=== PATIENT | female | born 1975 | race Caucasian/White ===

== ENCOUNTER 2020-07-23 10:54 | Outpatient (CLI) | payer OTHER, SELFPAY ==
--- NOTE | 2020-07-23 11:30 | NEURO_ITS ---
Impression: Complains of right upper extremity pain. # Right ulnar neuropathy across the elbow. # No Carpal Tunnel Syndrome. # Needle/EMG exam abnormal in right 1st DI and Abd Dig Min Nerve Conduction Studies Anti Sensory Summary Table Stim Site NR Peak (ms) P-T Amp (?V) Site1 Site2 Delta-P (ms) Dist (cm) Ariel (m/s) Right Median Anti Sensory (2-3nd Digit) Wrist 3.0 36.5 Wrist 2-3nd Digit 3.0 14.0 47 Wrist 3.1 28.9 Wrist 2-3nd Digit 3.0 14.0 47 Right Radial Anti Sensory (Base 1st Digit) Wrist 2.2 21.3 Wrist Base 1st Digit 2.2 0.0 Right Ulnar Anti Sensory (5th Digit) Wrist 2.2 24.6 Wrist 5th Digit 2.2 14.0 64 Motor Summary Table Stim Site NR Onset (ms) O-P Amp (mV) Site1 Site2 Delta-0 (ms) Dist (cm) Ariel (m/s) Right Median Motor (Abd Poll Brev) Wrist 3.0 9.4 Elbow Wrist 4.4 26.0 59 Elbow 7.4 6.4 Right Ulnar Motor (Abd Dig Minimi) Wrist 2.7 4.3 A Elbow Wrist 5.3 26.0 49 A Elbow 8.0 3.7 B Elbow Wrist 2.8 20.0 71 B Elbow 5.5 4.2 F Wave Studies NR F-Lat (ms) L-R F-Lat (ms) Right Median (Mrkrs) (Abd Poll Brev) 24.56 Right Ulnar (Mrkrs) (Abd Dig Min) 25.55 EMG Side Muscle Nerve Root Ins Act Fibs Amp Dur Recrt Comment Right 1stDorInt Ulnar C8-T1 Nml Nml Nml >12ms Reduced Right Ext Indicis Radial (Post Int) C7-8 Nml Nml Nml Nml Nml Right Ext Digitorum Radial (Post Int) C7-8 Nml Nml Nml Nml Nml Right BrachioRad Radial C5-6 Nml Nml Nml Nml Nml Right PronatorTeres Median C6-7 Nml Nml Nml Nml Nml Right Abd Poll Brev Median C8-T1 Nml Nml Nml Nml Nml Right ABD Dig Min Ulnar C8-T1 Nml Nml Nml >12ms Reduced MTDD
== END 2020-07-23 10:55 | disposition home or self-care (01) ==
PROVIDERS: PCP Internal Medicine; Visit Provider Internal Medicine
DX: G56.01 Carpal tunnel syndrome, right upper limb (principal)
CPT/HCPCS: 95886; 95909

== ENCOUNTER 2024-10-01 14:46 | Outpatient (CLI) | payer OTHER, SELFPAY ==
--- NOTE | ~2024-10-01 | XR_ITS ---
EXAM: XR shoulder LT min 2V DATE: 10/01/2024 15:28 HISTORY: pain in left shoulder . COMPARISON: CT chest, same date. FINDINGS: Normal mineralization. No fracture or dislocation. Bone island in the neck of the glenoid. No lytic or blastic lesion. Joint spaces are maintained. No erosion or periosteal change. Soft tissu es within normal limits. IMPRESSION: Normal left shoulder radiograph findings. Reviewed, dictated and finalized at location K.
--- NOTE | ~2024-10-01 | CT_ITS ---
CT Scan of the Chest without Contrast: Clinical Indication: Dyspnea Technique: Contiguous sections were acquired throughout the chest without intravenous contrast. Dose reduction technique was used on this scan by utilizing automated exposure control and iterative recon struction technique. The dose-length product (DLP) was 321.59 mGy-cm. Findings: There is no evidence of any significant mediastinal, hilar or axillary lymphadenopathy. The mediastin al soft tissues appear normal. There is no evidence of pleural or pericardial effusion. Thin-walled cystic lesion noted in the right lower lobe. No solid or suspicious pulmonary nodule seen . Images through the upper abdomen reveal no abnormalities. Impression: Thin-walled cystic lesion in the right lower lobe, with overall benign appearance. Reviewed, dictated and finalized at location . Impression: Thin-walled cystic lesion in the right lower lobe, with overall benign appearan ce.
--- OUTSIDE RECORDS SUMMARY | 2024-10-01 14:54 | XMS_ITS | Referral Summary ---
Author Organization [facility] Address [facility] [place] [address] Care Team Providers Care Benefits Specialist Name Role Phone Miscellaneous, Not In File Primary Care Provider Unavailable Allergies Active Allergy Reactions Criticality Noted Date Comments Promethazine Unknown 09/28/2023 Medications amoxicillin-clav ulanate (AUGMENTIN) 875-125 mg per tablet Take 1 tablet by mouth 2 (two) times a day 4 Active Eliquis 2.5 mg tablet TAKE 1 TABLET BY MOUTH TWICE DAILY DIRECTED 4 Active buPROPion XL (WELLBUTRIN XL) 300 mg 24 hr tablet 4 Active cloNIDine (CATAPRES) 0.1 mg tablet TAKE 1 TABLET BY MOUTH ONCE DAILY AT BEDTIME NEEDED FOR ANXIETY OR SLEEP 4 Active doxycycline (ADOXA) 100 mg tablet Take 1 tablet (100 mg total) by mouth 2 (two) times a day 4 Active triamcinolone (KENALOG) 0.025 % cream APPLY A THIN LAYER CREAM TO AFFECTED AREA 2-3 TIMES A DAY NEEDED FOR ITCHING/ INFLAMATION 4 Active traZODone (DESYREL) 50 mg tablet TAKE 1 TABLET BY MOUTH ONCE DAILY AT BEDTIME FOR SLEEP 4 Active ALBUTEROL SULFATE INHAL Inhale Active sodium chloride 3 % nebulizer solutionIndicati ons:Bronchiectas is without complication (HCC) Take 4 mL by nebulization 2 (two) times a day 240 mL 11 4 Active Active Problems Problem Noted Date Diagnosed Date History of Mycobacterium avium complex infection 10/01/2023 Assessment & Plan (10/01/2023 2:30 PM CDT): The last positive culture we are aware of was in 2017. She received an incomplete treatment course at that time. She is clinically stable. We will obtain sputum sample x 3 for AFB, and will obtain a repeat CT scan when she sees Dr Rain in 3 months. Until a dx of NTM pulmonary disease is established, she will not need to see me. 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 Social History Tobacco Use Types Packs/Day Years Used Date Smoking Tobacco: Every Day Cigarettes Smokeless Tobacco: Never Tobacco Cessation:Ready to Q uit: Yes; Counseling Given: Yes Personal Safety Answer Date Recorded Getting School Help Needed Not on file 05/17 Comments Unknown Sex and Gender Information Value Date Recorded Sex Assigned at Not on file 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 Gender Identity Not on file Sexual Orientation Not on file Last Filed Vital Signs Vital Sign Reading Time Taken Comments Blood Pressure 134/88 09/28/2023 9:06 AM CDT Pulse 88 09/28/2023 9:06 AM CDT Temperature 36.1 C (96.9 F) 09/28/2023 9:06 AM CDT Respiratory Rate - - Oxygen Saturation 95% 09/28/2023 9:06 AM CDT Inhaled Oxygen Concentration - - Weight 95.7 kg (211 lb) 09/28/2023 9:06 AM CDT Height 160 cm (5' 3) 09/28/2023 9:06 AM CDT Body Mass Index 37.38 09/28/2023 9:06 AM CDT Plan of Treatment Not on file Insurance [facility] [employer] Care Teams Benefits Specialist Relationship Specialty Start Date End Date Miscellaneous, Not In File PCP - General 09/28/23
--- OUTSIDE RECORDS SUMMARY | 2024-10-01 14:54 | XMS_ITS | Clinical Summary ---
Author Organization [facility] Address [facility] [place] [address] Care Team Providers Care Business Development Executive Name Role Phone Miscellaneous, Not In File [...] due to Mycobacterium avium c omplex 09/28/2023 Family History Medical History Relation Name Comments Stroke Brother Hypertension Father Stomach cancer Mother Relation Name Status Comments Brother Father Alive Mother Social History Tobacco Use Types Packs/Day Years Used Date Smoking Tobacco: Every Day Cigarettes Smokeless Tobacco: Never Tobacco Cessation:Ready to Q uit: Yes; Counseling Given: Yes Personal Safety Answer Date Recorded Getting School Help Needed Not on file 05/17 Comments Unknown Sex and Gender Information Value Date Recorded Sex Assigned at Not on file 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 Gender Identity Not on file Sexual Orientation Not on file Obstetrics History Last Filed Vital Signs Vital Sign Reading [...] 09/28/2023 9:06 AM CDT Plan of Treatment Health Maintenance Due Date Last Done Comments Breast Cancer Screening-Mammogram 1974 Cervical Cancer Screening 1974 Colon Cancer Screening-Colonoscopy 1974 Depression Screening 1974 Hepatitis C Screening 1974 Hepatitis B Screening 1992 Regular Well Visit/Exam 18-64 1992 Pneumococcal vaccine <65 (1 of 2 - PCV) 1993 Covid-19 Vaccine (3 - season) 11/06/202310/2022, 03/16/2022 Zoster Vaccine (1 of 2) 2024 Influenza Vaccine (#1) 2024 02/03/2023, 2022 DTaP/Tdap/Td Vaccine (2 - Td or Tdap) 05/05/203203/2022 Insurance [place] [id number] Care Teams Business Development Executive Relationship Specialty Start Date End Date Miscellaneous, Not In File PCP - General 09/28/23
== END 2024-10-01 14:47 | disposition home or self-care (01) ==
PROVIDERS: PCP Emergency Medicine; Visit Provider Emergency Medicine
DX: M25.512 Pain in left shoulder (principal); R06.00 Dyspnea, unspecified; J98.4 Other disorders of lung
CPT/HCPCS: 71250; 73030

== ENCOUNTER 2024-10-19 12:15 | Emergency (ER) | payer OTHER, SELFPAY ==
--- NOTE | ~2024-10-19 | US_ITS ---
EXAMINATION: US pelvic complete w TV DATE: 10/19/2024 14:42 INDICATION: 2 days of postmenopausal bleeding TECHNIQUE: Multiple transabdominal and endovaginal sonographic images of the pelvis were obtained. COMPARISON: None. FINDINGS: The uterus measures 8.3 x 4.0 x 5.9 cm. The endometrial complex measures 5 mm in thickness. The righ t ovary measures 2.7 x 1.3 x 2.5 cm. The left ovary measures 2.0 x 1.1 x 1.6 cm. Vascular flow with a rterial waveforms identified in both ovaries on color Doppler. There is no free fluid in the pelvis. IMPRESSION: 1. Endometrial complex measures 5 mm which is at the upper limits of normal for reported postmenopaus al state. Could consider follow-up pelvic ultrasound in 3-6 months, pre and postcontrast MRI or hyste roscopy for for further evaluation. Reviewed, dictated and finalized at location A. IMPRESSION: 1. Endometrial complex measures 5 mm which is at the upper limits of normal for reported postmenopausal state. Could consider follow-up pelvic ultrasound in 3 -6 months, pre and postcontrast MRI or hysteroscopy for for further evaluation.
[2024-10-19 12:17] VITALS: BP 161/102; PULSE 100; RESP 16; TEMP 36.7; O2SAT 98
--- OUTSIDE RECORDS SUMMARY | 2024-10-19 12:18 | XMS_ITS | Clinical Summary ---
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
[2024-10-19 12:42] VITALS: BP 133/88; PULSE 89; RESP 17; TEMP 36.6; O2SAT 97
[2024-10-19 13:00] VITALS: BP 128/87; PULSE 88; O2SAT 97
--- OUTSIDE RECORDS SUMMARY | 2024-10-19 13:07 | XMS_ITS | Clinical Summary ---
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
[2024-10-19 13:11] LABS: Hematocrit 43.8 % (37.0-47.0); Hemoglobin 14.6 g/dL (12.0-15.0); Immature Granulocyte Percent A 0.6 % (0-0.5); Lymphocytes Absolute Auto 3.17 K/mm3 (0.9-3.2); Mean Corpuscular HGB Conc 33.3 g/dl (32-36); Mean Corpuscular Hemoglobin 30.0 pg (26-34); Mean Corpuscular Volume 90.1 fl (80-100); Nucleated Red Blood Cells Absolute Auto 0.000 K/mm3 (0.0-0.012); Nucleated Red Blood Cells Perc 0.0 % (0.0-0.2); Platelet Count Result 332 k/mm3 (150-375); Red Blood Count 4.86 M/mm3 (4.2-5.4); White Blood Count 11.9 K/mm3 (4.5-10.0)
[2024-10-19 13:19] LABS: Alanine Aminotransferase 22 U/L (6-35); Albumin Level 4.6 g/dL (3.5-5.1); Alkaline Phosphatase 84 U/L (38-126); Anion Gap 9 mmol/L (4-12); Aspartate Amino Transferase 23 U/L (14-36); Bilirubin,Total 0.5 mg/dL (0.2-1.3); Blood Urea Nitrogen 11 mg/dL (7-17); Calcium 9.2 mg/dL (8.4-10.2); Carbon Dioxide 24 mmol/L (22-30); Chloride 108 mmol/L (98-107); Estimated CRCL calculation 85 ml/min; Estimated Glomerular Filt Rate > 60; Glucose 88 mg/dL (65-110); Potassium 3.8 mmol/L (3.4-5.0); Sodium 141 mmol/L (137-145); Total Protein 8.2 g/dL (6.3-8.2)
[2024-10-19 13:22] LABS: INR 1.1; Prothrombin Time 14.0 Seconds (11.1-14.7)
[2024-10-19 13:23] LABS: Partial Thromboplastin Time 28.3 Seconds (22.3-36.8)
[2024-10-19 13:30] VITALS: BP 128/82; PULSE 80; O2SAT 96
--- NOTE | 2024-10-19 14:26 | ED.FEMALEGU ---
HPI - Female Genitourinary General Chief complaint: Vaginal Bleeding Stated complaint: vga bleed Time Seen by Provider: 10/19/24 12:44 Source: patient Mode of arrival: ambulatory Limitations: no limitations History of Present Illness HPI Narrative: Patient is a 49-year-old female who presents the ED with report of vaginal bleeding. Patient reports she has not had a menstrual cycle since May of last year, was perimenopausal for a couple years prior. She developed some vaginal spotting last night. She then woke up throughout the night and had profuse vaginal bleeding, soaking through to her clothes. She placed a super tampon and reports that she blood through this in around 3 hours. Patient is on Eliquis due to history of previous blood clots. Reports intermittent abdominal cramping. Was referred here for ultrasound for postmenopausal bleeding. Denies nausea, vomiting, significant dizziness/lightheadedness, fevers. Related Data Allergies Allergy/AdvReac Type Severity Reaction Status Date / Time promethazine (From Phenergan) Allergy Mild Unknown Verified 10/19/24 12:48 Review of Systems Review of Systems: All systems reviewed & are unremarkable except as noted in HPI. All systems reviewed & are unremarkable except as noted in HPI and below Exam Narrative: GENERAL: Well appearing, obese with BMI of 38.1, non-toxic, in no acute distress. HEAD: Normocephalic, atraumatic. RESPIRATORY: Airway patent, respirations nonlabored. Clear to auscultation bilaterally, no rales, rhonchi, wheezing. CARDIOVASCULAR: Regular rate and rhythm without murmurs, rubs, or gallops. ABDOMINAL: Soft, no significant focal tenderness, nondistended. Normoactive BS. PELVIC: Normal external genitalia. Mild amount of dark red vaginal blood in vault. No evidence of hemorrhage or pooling of fluid. No genital lesions or cervical abnormalities identified. MUSCULOSKELETAL: Moves all extremities. No gross deformities. SKIN: Warm, dry, normal color. NEURO: A&O X3. Speech clear. Cranial nerves II-XII grossly intact. Steady gait. No ataxic movements. PSYCHIATRIC: Appropriate mood and affect. Normal interaction. Course Vital Signs Vital signs: Vital Signs Temperature 98.0 F 10/19/24 12:17 Pulse Rate 100 10/19/24 12:17 Respiratory Rate 16 10/19/24 12:17 Blood Pressure 161/102 H 10/19/24 12:17 Pulse Oximetry 98 10/19/24 12:17 Oxygen Delivery Room Air 10/19/24 12:17 Temperature 98.2 F 10/19/24 17:00 Pulse Rate 83 10/19/24 17:00 Respiratory Rate 18 10/19/24 17:00 Blood Pressure 141/83 H 10/19/24 17:00 Pulse Oximetry 97 10/19/24 17:00 Oxygen Delivery Room Air 10/19/24 12:17 MDM - Female Genitourinary MDM Narrative Medical decision making narrative: Patient presented to ED with postmenopausal bleeding, has been postmenopausal since last July. Reports bleeding last night into today. Does report bleeding is somewhat improved currently. Vital signs are stable upon arrival. She is in no acute distress. Laboratory studies are stable. H&H is stable at 14.6-43.8. Platelets within normal range. Coags normal. CMP is unremarkable. Pelvic ultrasound was obtained and showing endometrial thickness of around 5 mm, borderline for postmenopausal, no other significant findings. Pelvic exam without evidence of hemorrhage. No other concerning features. Discussed case with Dr. Redding OBGYN, advised will have office call patient next week to set up a follow up appointment. Patient advised to continue to monitor bleeding, given strict return precautions. She agrees with plan. Discharged in stable condition. Medical Records Attestation: I reviewed the patient's medical records. Lab Data Attestation: I reviewed the patient's lab results. 10/19/24 12:50 10/19/24 12:50 Labs: Lab Results 10/19/24 Range/Units 12:50 WBC 11.9 H (4.5-10.0) K/mm3 RBC 4.86 (4.2-5.4) M/mm3 Hgb 14.6 (12.0-15.0) g/dL Hct 43.8 (37.0-47.0) % MCV 90.1 (80-100) fl MCH 30.0 (26-34) pg MCHC 33.3 (32-36) g/dl RDW 13.3 (11.5-14.5) % Plt Count 332 (150-375) k/mm3 MPV 9.9 (7.4-10.4) fl Immature Gran % (Auto) 0.6 H (0-0.5) % Neut % (Auto) 63.6 (45.5-73.1) % Lymph % (Auto) 26.6 (18.3-44.2) % Coffee % (Auto) 6.5 (2.6-8.5) % Eos % (Auto) 2.0 (0-4.4) % Baso % (Auto) 0.7 (0.2-1.2) % Lymph # (Auto) 3.17 (0.9-3.2) K/mm3 Coffee # (Auto) 0.8 H (0.1-0.6) K/mm3 Eos # (Auto) 0.2 (0-0.3) K/mm3 Baso # (Auto) 0.1 (0.0-0.1) K/mm3 Abs Immat Gran (auto) 0.07 H (0.00-0.031) K/mm3 Absolute Neuts (auto) 7.6 H (1.3-6.7) K/mm3 Absolute Nucleated RBC 0.000 (0.0-0.012) K/mm3 Nucleated RBC % 0.0 (0.0-0.2) % PT 14.0 (11.1-14.7) Seconds INR 1.1 APTT 28.3 (22.3-36.8) Seconds Sodium 141 (137-145) mmol/L Potassium 3.8 (3.4-5.0) mmol/L Chloride 108 H (98-107) mmol/L Carbon Dioxide 24 (22-30) mmol/L Anion Gap 9 (4-12) mmol/L BUN 11 (7-17) mg/dL Creatinine 0.79 (0.7-1.0) mg/dL Estim Creat Clear Calc 85 ml/min Estimated GFR > 60 (59 - ) Glucose 88 (65-110) mg/dL Calcium 9.2 (8.4-10.2) mg/dL Total Bilirubin 0.5 (0.2-1.3) mg/dL AST 23 (14-36) U/L ALT 22 (6-35) U/L Alkaline Phosphatase 84 (38-126) U/L Total Protein 8.2 (6.3-8.2) g/dL Albumin 4.6 (3.5-5.1) g/dL Imaging Data Attestation: I personally reviewed and interpreted this imaging study as follows: Radiologist's impression: ITS Impressions Pelvic/Transvag US 10/19/24 15:21 IMPRESSION: 1. Endometrial complex measures 5 mm which is at the upper limits of normal for reported postmenopausal state. Could consider follow-up pelvic ultrasound in 3-6 months, pre and postcontrast MRI or hysteroscopy for for further evaluation. Discharge Plan Discharge Clinical Impression: Post-menopausal bleeding Patient Disposition: Home Condition: Stable Instructions: Antibiotic Form, Abnormal (Dysfunctional) Uterine Bleeding (ED), Dysmenorrhea (ED) Additional Instructions: Follow-up with OBGYN for further evaluation. The OBGYN office should be contacting you next week to make a follow-up appointment. Continue to monitor bleeding. Return to the ED if you experience worsening or severe symptoms, severe bleeding (saturating through large tampon or pad within 1 hour for > 3 consecutive hours), severe pain, unable to keep down food or drink, passing out, severe dizziness, or any other symptoms of concern. Patient Language: Guatemalan Follow-up/Referrals: Jennifer,Sussy Gray MD [Primary Care Provider] - Kennedy Redding MD [Physician] - (OBGYN) Time of Disposition: 16:42
[2024-10-19 16:59] VITALS: BP 141/83; PULSE 83; RESP 18; TEMP 36.8; O2SAT 97
[2024-10-19 17:00] VITALS: BP 141/83; PULSE 83; RESP 18; TEMP 36.8; O2SAT 97
== END 2024-10-19 17:01 | disposition home or self-care (01) ==
PROVIDERS: Emergency Provider Physician Assistant; PCP Emergency Medicine
DX: N95.0 Postmenopausal bleeding (principal)
CPT/HCPCS: 36415; 76830; 76856; 80053; 85025; 85610; 85730; 99284